=== PATIENT | female | born 2000 | race Caucasian/White ===

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

== ENCOUNTER 2020-02-02 12:56 | Emergency (ER) | payer OTHER ==
[~2020-02-02] VITALS: Ht 172.7 cm; Wt 126.6 kg
[~2020-02-02 12:56] MED LIST changes: +CHLORZOXAZONE500 M2 PO; +NAPROSYN500 MG PO; +VITAMIN D350000 UNIT PO
[2020-02-02] MEDS ORDERED: NAPROSYN500 MG PO (15:33)
[2020-02-02] MEDS ORDERED: METHOCARBAMOL500 M1 PO (15:33)
== END 2020-02-02 15:28 | disposition home or self-care (01) ==
LOC: ED 12:56
DX: S30.0XXA Contusion of lower back and pelvis, initial encounter (principal); N18.1 Chronic kidney disease, stage 1; Z79.899 Other long term (current) drug therapy; X58.XXXA Exposure to other specified factors, initial encounter; Y93.89 Activity, other specified; Y92.89 Other specified places as the place of occurrence of the external cause; Y99.8 Other external cause status

== ENCOUNTER 2020-12-27 23:16 | Emergency (ER) | payer OTHER ==
[~2020-12-27] VITALS: Ht 170.1 cm; Wt 126.1 kg
[~2020-12-27 23:16] MED LIST changes: +METHOCARBAMOL500 M1 PO
[2020-12-28] MEDS ORDERED: AMOXICILLIN500 M2 PO (01:41)
[2020-12-28] MEDS ORDERED: AUGMENTIN 875875 MG PO (01:44)
== END 2020-12-28 02:00 | disposition home or self-care (01) ==
LOC: ED 23:16
DX: J03.90 Acute tonsillitis, unspecified (principal)

== ENCOUNTER 2021-06-30 09:20 | Emergency (ER) | payer OTHER ==
[~2021-06-30] VITALS: Ht 172.7 cm; Wt 122.9 kg
[~2021-06-30 09:20] MED LIST changes: +AUGMENTIN 875875 MG PO
[2021-06-30] MEDS ORDERED: TAMIFLU 75MG CA75 MG PO (10:39)
== END 2021-06-30 10:48 | disposition home or self-care (01) ==
LOC: ED 09:20
DX: J10.1 Influenza due to other identified influenza virus with other respiratory manifestations (principal); Z20.822 Contact with and (suspected) exposure to COVID-19

== ENCOUNTER 2022-05-14 07:50 | Emergency (ER) | payer BC ==
[~2022-05-14] VITALS: Ht 172.7 cm; Wt 124.7 kg
[~2022-05-14 07:50] MED LIST changes: +TAMIFLU 75MG CA75 MG PO
[2022-05-14 08:40] LABS: BASO # 0.1 10*3/uL (0.0-0.1); BASO % 0.5 % (0.0-1.0); EOS # 0.2 10*3/uL (0.0-0.4); EOS % 1.1 % (1.0-4.0); HEMATOCRIT 41.3 % (37.0-47.0); LYMPH # 2.2 10*3/uL (1.3-4.4); LYMPH % 16.6 % (27.0-41.0); MEAN CELL VOLUME 80.8 fl (81.0-99.0); MEAN CORPUSCULAR HGB 26.8 pg (27.0-31.0); MEAN CORPUSCULAR HGB CONC 33.2 g/dl (33.0-37.0); MONO # 0.6 10*3/uL (0.1-1.0); MONO % 4.8 % (3.0-9.0); NEUT # 10.2 10*3/uL (2.3-7.9); NEUT % 76.8 % (47.0-73.0); PLATELET COUNT AUTOMATED 405 10*3/uL (130-400); RED BLOOD COUNT 5.11 10*6/uL (4.10-5.10); RED CELL DISTRI WIDTH 13.6 % (0-14.5); WHITE BLOOD COUNT 13.2 10*3/uL (4.8-10.8)
[2022-05-14 09:00] LABS: ALKALINE PHOSPHATASE 63 U/L (46-116); BETA-HCG, QUANT < 3.0 mIU/mL (0-10); BUN 8 mg/dl (9-23); CHLORIDE 100 mmol/L (98-107); CREATININE 0.78 mg/dL (0.55-1.02); LIPASE 38 U/L (12-53); POTASSIUM 4.1 mmol/L (3.4-5.1); SGPT/ALT 20 U/L (10-49); TOTAL PROTEIN 8.1 gm/dL (6.0-8.0)
[2022-05-14 09:52] LABS: BILIRUBIN Negative (Negative); BLOOD Negative (Negative); CLARITY Cloudy (Clear); COLOR Yellow (Yellow); GLUCOSE Negative (Negative); KETONE Trace (Negative); LEUKO ESTERASE 1+ (Negative); NITRITE Negative (Negative); SPECIFIC GRAVITY 1.025 (1.001-1.030); UROBILINOGEN 0.2 E.U./dl (0.0-1.0)
[2022-05-14 10:08] LABS: BACTERIA 1+; MUCOUS TRACE
[2022-05-14] MEDS ORDERED: Motrin,Rufen800 MG PO (12:15)
[2022-05-14] MEDS ORDERED: CIPRO500 MG PO (12:15)
== END 2022-05-14 12:23 | disposition home or self-care (01) ==
LOC: ED 07:50
PROVIDERS: Emergency Medicine
DX: N39.0 Urinary tract infection, site not specified (principal)